=== PATIENT | male | born 1965 | race Two or more races ===

== ENCOUNTER 2020-06-08 09:51 | Outpatient (CLI) | payer OTHER | END 2020-06-08 11:40 | disposition home or self-care (01) | LOC: OFIC 805 09:51 | PROVIDERS: ATTEND Otolaryngology | DX: J34.2 Deviated nasal septum (principal); H90.3 Sensorineural hearing loss, bilateral; H61.21 Impacted cerumen, right ear ==

== ENCOUNTER 2020-06-23 08:34 | Outpatient (CLI) | payer OTHER | END 2020-06-23 10:19 | disposition home or self-care (01) | LOC: OFIC 805 08:34 | PROVIDERS: ATTEND Otolaryngology Otology & Neurotology | DX: H90.41 Sensorineural hearing loss, unilateral, right ear, with unrestricted hearing on the contralateral side (principal); J34.2 Deviated nasal septum; H61.21 Impacted cerumen, right ear ==